=== PATIENT | female | born 1990 | race Caucasian/White ===

== ENCOUNTER 2016-12-26 11:00 | Day surgery (SDC) | payer OTHER ==
[2016-12-22 15:39] VITALS: BMI 19.6
[2016-12-26] MEDS ORDERED: LEVOFLOXACIN 500 MG IVPB 100 ML IVPB ONE (13:10)
[2016-12-26] MEDS ORDERED: LEVOFLOXACIN 500 MG PREMIX BAG IVPB ONE ×2 (13:18→13:22)
[2016-12-26] MEDS ORDERED: DEXAMETHASONE SOD PHOSPHATE 4 MG/1 ML VIAL ONE (13:19)
[2016-12-26] MEDS ORDERED: MIDAZOLAM HCL 2 MG/2 ML SINGLE DOSE VIAL ONE ×2 (13:19)
[2016-12-26] MEDS ORDERED: KETOROLAC TROMETHAMINE 30 MG/1 ML VIAL ONE (13:37)
[2016-12-26] MEDS ORDERED: ONDANSETRON 4 MG/2 ML VIAL IVPUSH PRN (14:05)
[2016-12-26] MEDS ORDERED: PROMETHAZINE HCL 25 MG/1 ML VIAL IVPUSH PRN (14:05)
[2016-12-26] MEDS ORDERED: oxyCODONE HCL 5 MG TABLET PO PRN (14:05)
--- NOTE | 2016-12-26 14:56 | OP ---
Operative Note - Note: Operative Date: 12/26/16 Pre-Operative Diagnosis: right renal stones Operation: right eswl Findings: right eswl Post-Operative Diagnosis: Same as Pre-op Surgeon: Fernando Cuadra Anesthesia: General Operative Report Dictated: Yes
[2016-12-26 14:57] VITALS: TEMP 97.5
[2016-12-26 16:06] VITALS: BP 115/62; PULSE 68
--- NOTE | 2016-12-26 21:45 | OP ---
DATE OF OPERATION: 12/26/2016 PREOPERATIVE DIAGNOSIS: Right renal stone. POSTOPERATIVE DIAGNOSIS: Right renal stone. PROCEDURE: Right extracorporeal shock-wave lithotripsy. ATTENDING: Emiliano Owen MD ANESTHESIA: General. OPERATION: The patient was brought in the operating room and placed in a supine position on the operating room table. Ultrasonography and fluoroscopy were performed. Two large stones were noted, 1 in the middle pole, 1 in the lower pole. The lower pole stone measured 1 cm. The midpole stone measured 2 cm. It was decided to spend the time with the larger stone in order to maximize success with at least 1 stone. The stone on fluoroscopy was extremely dense in appearance. General anesthesia and antibiotics were administered prior to the commencement of the shock-wave lithotripsy. Once the anesthesia was adequate, extracorporeal shock-wave lithotripsy was performed, 3000 impulses at 20 joules of power was administered to the stone, with what appeared to be excellent fragmentation on real-time ultrasonography and fluoroscopy. There were no complications were noted. The disposition of the patient was to recovery room. EMILIANO OWEN M.D. [id number]
== END 2016-12-26 16:05 | disposition home or self-care (01) ==
LOC: JASU-SURG 11:00
PROVIDERS: ATTEND Urology
PROC: 0TF3XZZ Fragmentation in Right Kidney Pelvis, External Approach (ICD-10-PCS; principal; 2016-12-26 12:30)
DX: N20.0 Calculus of kidney (principal)
CPT/HCPCS: 84703; 94760

== ENCOUNTER 2017-06-05 13:01 | Day surgery (SDC) | payer OTHER ==
[2017-06-01 14:43] VITALS: BMI 20.8
[2017-06-05] MEDS ORDERED: MIDAZOLAM HCL 2 MG/2 ML SINGLE DOSE VIAL ONE ×2 (13:37→13:49)
[2017-06-05] MEDS ORDERED: LEVOFLOXACIN 500 MG PREMIX BAG IVPB ONE ×2 (13:46→13:47)
[2017-06-05] MEDS ORDERED: PROMETHAZINE HCL 25 MG/1 ML VIAL IVPUSH PRN (14:26)
[2017-06-05] MEDS ORDERED: oxyCODONE HCL 5 MG TABLET PO PRN (14:26)
[2017-06-05] MEDS ORDERED: ONDANSETRON 4 MG/2 ML VIAL IVPUSH PRN (14:26)
[2017-06-05] MEDS ORDERED: LACTATED RINGERS SOLUTION 1,000 ML IV SCH (14:30)
--- NOTE | 2017-06-05 16:00 | OP ---
Operative Note - Note: Operative Date: 06/05/17 Pre-Operative Diagnosis: left upper ureteral stone Operation: Left ESWL Post-Operative Diagnosis: Same as Pre-op Anesthesia: Fractional
[2017-06-05 16:18] VITALS: BP 120/65; PULSE 68
[2017-06-05 16:27] VITALS: TEMP 97.6
--- NOTE | 2017-06-06 14:55 | OP ---
DATE OF OPERATION: 06/05/2017 PREOPERATIVE DIAGNOSIS: Left upper ureteral stone. POSTOPERATIVE DIAGNOSIS: Left upper ureteral stone. PROCEDURE: Left extracorporeal shock wave lithotripsy. ATTENDING: Emiliano Owen MD ANESTHESIA: Fractional. DESCRIPTION OF PROCEDURE: The patient was brought in the operating room, placed in supine position on the operating room table. Fluoroscopy and ultrasonography were performed. A 7-mm upper ureteral stone was noted. The patient was then given anesthesia and preoperative surgical prophylaxis for antibiotics. Next, 3000 impulses at 18 joules of power were administered to the stone. Excellent fragmentation was noted under real time ultrasonography and fluoroscopy. No complications were noted. The patient tolerated the procedure very well. EMILIANO OWEN M.D. [id number]
== END 2017-06-05 16:53 | disposition home or self-care (01) ==
LOC: JASU-SURG 13:01
PROVIDERS: ATTEND Urology
PROC: 0TF7XZZ Fragmentation in Left Ureter, External Approach (ICD-10-PCS; principal; 2017-06-05 14:45)
DX: N20.1 Calculus of ureter (principal)
CPT/HCPCS: 84703; 94760

== ENCOUNTER 2018-02-19 06:30 | Day surgery (SDC) | payer OTHER ==
[2018-02-16 14:01] VITALS: BMI 21.2
[2018-02-19] MEDS ORDERED: ePHEDrine SULFATE 50 MG/1 ML AMPULE ONE (07:28)
[2018-02-19] MEDS ORDERED: SUCCINYLCHOLINE CHLORIDE 200 MG/10 ML VIAL ONE (07:28)
[2018-02-19] MEDS ORDERED: MIDAZOLAM HCL 2 MG/2 ML SINGLE DOSE VIAL ONE (07:28)
[2018-02-19] MEDS ORDERED: PROPOFOL 20 ML ONE ×10 (07:28)
[2018-02-19] MEDS ORDERED: KETOROLAC TROMETHAMINE 30 MG/1 ML VIAL ONE (07:33)
[2018-02-19] MEDS ORDERED: KETAMINE HCL 200 MG/20 ML VIAL ONE (07:33)
[2018-02-19 09:19] VITALS: PULSE 70; TEMP 97.4
--- NOTE | 2018-02-19 09:31 | OP ---
Operative Note - Note: Operative Date: 02/19/18 Pre-Operative Diagnosis: Right kidney stones Operation: Right ESWL Findings: 10 & 5 mm upper pole kidney stone Right Post-Operative Diagnosis: Same as Pre-op Surgeon: Fernando Cuadra Anesthesia: Fractional
[2018-02-19] MEDS ORDERED: oxyCODONE HCL 5 MG TABLET PO PRN (09:45)
[2018-02-19] MEDS ORDERED: LACTATED RINGERS SOLUTION 1,000 ML IV SCH (09:45)
[2018-02-19] MEDS ORDERED: ONDANSETRON 4 MG/2 ML VIAL IVPUSH PRN (09:45)
[2018-02-19] MEDS ORDERED: ACETAMINOPHEN 325 MG TABLET (FP) PO PRN (09:45)
[2018-02-19 11:40] VITALS: BP 102/68
--- NOTE | 2018-02-19 23:27 | OP ---
DATE OF OPERATION: 02/19/2018 PREOPERATIVE DIAGNOSIS: Right renal stone. POSTOPERATIVE DIAGNOSIS: Right renal stone. PROCEDURE: Right extracorporeal shock wave lithotripsy. ATTENDING: Fernando Cuadra M.D. ANESTHESIA: General. OPERATION: Patient was brought in the operating room, placed in a supine position on the operating room table. Ultrasonography and fluoroscopy were performed. On the right kidney two stones measuring 10 mm and 5 mm, respectively, were noted in the upper pole of the right kidney. Because of the size of the stones, it was decided to focus on the 10 mm stone. The stone was noted on fluoroscopy and ultrasonography. Anesthesia was then administered as was preoperative antibiotics. 3000 impulses at 22 joules of power were administered to the stone with excellent fragmentation of the stone under real time fluoroscopy and ultrasonography. The patient had a residual right stone. There were no complications noted. The patient tolerated the procedure very well. Alejandrina [id number]
== END 2018-02-19 11:41 | disposition home or self-care (01) ==
LOC: JASU-SURG 06:30
PROVIDERS: ATTEND Urology
PROC: 0TF3XZZ Fragmentation in Right Kidney Pelvis, External Approach (ICD-10-PCS; principal; 2018-02-19 08:00)
DX: N20.0 Calculus of kidney (principal)
CPT/HCPCS: 84703

== ENCOUNTER 2019-09-30 11:42 | Day surgery (SDC) | payer OTHER ==
[2019-09-26 17:45] VITALS: BMI 22.0
[2019-09-30] MEDS ORDERED: PROPOFOL 20 ML ONE ×2 (15:14)
[2019-09-30] MEDS ORDERED: ONDANSETRON 4 MG/2 ML VIAL IVPUSH PRN (15:47)
[2019-09-30] MEDS ORDERED: oxyCODONE HCL 5 MG TABLET PO PRN (15:47)
[2019-09-30] MEDS ORDERED: LACTATED RINGERS SOLUTION 1,000 ML IV SCH (16:00)
--- NOTE | 2019-09-30 16:23 | OP ---
Operative Note - Note: Operative Date: 09/30/19 Pre-Operative Diagnosis: Right renal stone Operation: Right ESWL Findings: 7 mm mid pole Right renal stone Post-Operative Diagnosis: Same as Pre-op Surgeon: Fernando Cuadra Anesthesia: Fractional Estimated Blood Loss (mls): 0 Operative Report Dictated: Yes
[2019-09-30 18:11] VITALS: TEMP 97.8
[2019-09-30 18:18] VITALS: BP 130/70; PULSE 76
--- NOTE | 2019-10-01 15:10 | OP ---
DATE OF OPERATION: DATE OF DICTATION: 09/30/2019 PREOPERATIVE DIAGNOSIS: Right renal stone. POSTOPERATIVE DIAGNOSIS: Right renal stone. PROCEDURE: Right extracorporeal shock wave lithotripsy. ATTENDING: Emiliano Owen MD ANESTHESIA: Fractional. Operation went as follows. Patient was brought in the operating room and placed in the supine position on the operating room table. Ultrasonography and fluoroscopy were performed. A 7-mm right midpole stone was identified. Anesthesia and preoperative antibiotics were then administered. Shock wave lithotripsy was then started. Next, 2500 impulses of 17 joules of power were administered to the stone with excellent fragmentation of the stone noted under real-time ultrasonography and fluoroscopy. No complications were noted. The disposition of the patient was to recovery room. EMILIANO OWEN M.D. [id number]
== END 2019-09-30 18:05 | disposition home or self-care (01) ==
LOC: JASU-SURG 11:42
PROVIDERS: ATTEND Urology
PROC: 0TF3XZZ Fragmentation in Right Kidney Pelvis, External Approach (ICD-10-PCS; principal; 2019-09-30 14:00)
DX: N20.0 Calculus of kidney (principal)
CPT/HCPCS: 84703; 94760

== ENCOUNTER 2021-04-12 04:47 | Day surgery (SDC) | payer OTHER ==
[2021-04-08 12:58] VITALS: BMI 24.3
[2021-04-12 19:38] VITALS: BP 127/74; PULSE 86; TEMP 97.6
== END 2021-04-12 19:20 | disposition home or self-care (01) ==
LOC: JASU-SURG 04:47
PROVIDERS: ATTEND Urology
PROC: 0TF3XZZ Fragmentation in Right Kidney Pelvis, External Approach (ICD-10-PCS; principal; 2021-04-12 15:30)
DX: N20.0 Calculus of kidney (principal)
CPT/HCPCS: 81025

== ENCOUNTER → 2022-03-22 | Day surgery (SDC) | payer OTHER | END | disposition home or self-care (01) | LOC: JRADIR 10:15 | PROVIDERS: ATTEND Internal Medicine Endocrinology, Diabetes & Metabolism | PROC: 0G9H3ZX Drainage of Right Thyroid Gland Lobe, Percutaneous Approach, Diagnostic (ICD-10-PCS; principal; 2022-03-22) | DX: E04.1 Nontoxic single thyroid nodule (principal) | CPT/HCPCS: 10005; 76942; 88173; 88305-TC ==

== ENCOUNTER 2022-05-23 04:17 | Day surgery (SDC) | payer OTHER ==
[2022-05-19 13:22] VITALS: BMI 24.3
[2022-05-23 08:49] VITALS: RESP 18
[2022-05-23] MEDS ORDERED: ONDANSETRON 4 MG/2 ML VIAL ONE (09:44)
[2022-05-23] MEDS ORDERED: PROPOFOL 20 ML ONE (09:44)
[2022-05-23] MEDS ORDERED: KETOROLAC TROMETHAMINE 30 MG/1 ML VIAL ONE (09:44)
[2022-05-23 10:31] VITALS: PULSE 79
[2022-05-23 12:12] VITALS: BP 118/65; TEMP 97.8
[2022-05-23] MEDS ORDERED: ACETAMINOPHEN 325 MG TABLET (FP) PO PRN (15:32)
[2022-05-23] MEDS ORDERED: ONDANSETRON 4 MG/2 ML VIAL IVPUSH PRN (15:32)
[2022-05-23] MEDS ORDERED: LACTATED RINGERS SOLUTION 1,000 ML IV SCH (15:45)
== END 2022-05-23 11:35 | disposition home or self-care (01) ==
LOC: JASU-SURG 04:17
PROVIDERS: ATTEND Urology
PROC: 0TF3XZZ Fragmentation in Right Kidney Pelvis, External Approach (ICD-10-PCS; principal; 2022-05-23 10:30)
DX: N20.0 Calculus of kidney (principal)
CPT/HCPCS: 81025